=== PATIENT | male | born 1995 | race Caucasian/White ===

== ENCOUNTER 2018-03-27 12:00 | Emergency (ER) | payer SELFPAY ==
[~2018-03-27] VITALS: Ht 172.7 cm; Wt 68.0 kg
[~2018-03-27 12:00] MED LIST: DOXY100T PO; LORT5TAB PO; SULF-154 PO; Z.0.NO CURRENT MEDS
[2018-03-27 12:06] VITALS: BP 178/107; PULSE 87; RESP 18; TEMP 97.8; O2SAT 99
[2018-03-27] MEDS ORDERED: DEXAMETHASONE SOD PHOS 4 MG/ML VIAL IV PUSH ONE (12:15)
[2018-03-27] MEDS ORDERED: SODIUM CHLOR 0.9% 1000 ML INJ 1,000 ML IV ONE (12:15)
--- NOTE | 2018-03-27 12:15 | PD ---
HPI Chief Complaint: GI Complaint Time Seen by Provider: 12:10 Travel History International Travel<30 days: No Contact w/Intl Traveler<30days: No Traveled to known affect area: No History of Present Illness HPI 22-year-old male with history of asthma, presents emergency department for evaluation of sore throat that began yesterday. He has had nausea, vomiting, diarrhea today. He denies any abdominal pain. States his only pain is in his throat, it is burning, painful. Exacerbated with swallowing. He is uncertain of fever or chills. Denies any changes in bladder habits. He has no other symptoms to report at this time. [facility] Past Medical History Asthma: Yes Social History Alcohol Use: No Tobacco Use: Yes (5-6 cigarettes/day) Substance Use: No Allergies-Medications (Allergen,Severity, Reaction): Coded Allergies: cefaclor (Verified Allergy, Mild, Rash, 03/27/18) Reported Meds & Prescriptions Reported Meds & Active Scripts Active Lortab 5/500 (Acetaminophen/Hydrocodone Bitart) 5 Mg/500 Mg Tab 1 Tab PO Q6HPRN FOR PAIN Septra Ds (Trimethoprim/Sulfamethoxazole) Tab 1 Tab PO BID Doxycycline Hyclate 100 Mg Tab 100 Mg PO BID Reported No Current Meds (Miscellaneous Medication) Misc Review of Systems Except as stated in HPI: all other systems reviewed are Neg Physical Exam Narrative GENERAL: Well-nourished, well-developed male patient in no acute distress SKIN: Focused skin assessment warm/dry. HEAD: Normocephalic. EYES: No scleral icterus. No injection or drainage. ENT: Mucosa pink and moist. Significant erythema, with no exudate. No uvular edema. No uvular, palatal, or tonsillar deviation. Airway patent. Nasal turbinates appear normal without nasal blood, purulent drainage or septal hematoma. NECK: Supple, trachea midline. Cervical lymphadenopathy. CARDIOVASCULAR: Regular rate and rhythm without murmurs, gallops, or rubs. RESPIRATORY: Breath sounds equal bilaterally. No accessory muscle use. GASTROINTESTINAL: Abdomen soft, non-tender, nondistended. No guarding. No rebound tenderness. MUSCULOSKELETAL: No cyanosis, or edema. BACK: Nontender without obvious deformity. No CVA tenderness. Data Data Last Documented VS Vital Signs Date Time Temp Pulse Resp B/P (MAP) Pulse Ox O2 Delivery O2 Flow Rate FiO2 03/27/18 12:06 97.8 87 18 178/107 (130) 99 Orders Orders Iv Access Insert/Monitor (03/27/18 12:13) Complete Blood Count With Diff (03/27/18 12:13) Basic Metabolic Panel (Bmp) (03/27/18 12:13) Group A Rapid Strep Screen (03/27/18 12:13) Sodium Chlor 0.9% 1000 Ml Inj (Ns 1000 M (03/27/18 12:15) Dexamethasone Inj (Decadron Inj) (03/27/18 12:15) Strep Culture (Group A) (03/27/18 12:25) Labs Laboratory Tests Test 03/27/18 12:25 White Blood Count 15.9 TH/MM3 Red Blood Count 4.99 MIL/MM3 Hemoglobin 15.7 GM/DL Hematocrit 45.1 % Mean Corpuscular Volume 90.3 FL Mean Corpuscular Hemoglobin 31.4 PG Mean Corpuscular Hemoglobin Concent 34.8 % Red Cell Distribution Width 13.0 % Platelet Count 272 TH/MM3 Mean Platelet Volume 8.7 FL Neutrophils (%) (Auto) 84.6 % Lymphocytes (%) (Auto) 7.5 % Monocytes (%) (Auto) 6.5 % Eosinophils (%) (Auto) 1.1 % Basophils (%) (Auto) 0.3 % Neutrophils # (Auto) 13.4 TH/MM3 Lymphocytes # (Auto) 1.2 TH/MM3 Monocytes # (Auto) 1.0 TH/MM3 Eosinophils # (Auto) 0.2 TH/MM3 Basophils # (Auto) 0.0 TH/MM3 CBC Comment DIFF FINAL Differential Comment Blood Urea Nitrogen 10 MG/DL Creatinine 0.81 MG/DL Random Glucose 87 MG/DL Calcium Level 9.4 MG/DL Sodium Level 139 MEQ/L Potassium Level 4.2 MEQ/L Chloride Level 105 MEQ/L Carbon Dioxide Level 24.3 MEQ/L Anion Gap 10 MEQ/L Estimat Glomerular Filtration Rate 118 ML/MIN [facility] Medical Decision Making Medical Screen Exam Complete: Yes Emergency Medical Condition: Yes Medical Record Reviewed: Yes Differential Diagnosis Pharyngitis viral versus bacterial versus gastritis versus gastroenteritis Narrative Course 22-year-old male presents emergency department for evaluation of sore throat developed yesterday with nausea, vomiting, diarrhea today. Patient appears without distress. His vital signs are stable. Pharynx is erythematous without exudate. Strep screen is negative. Patient does have moderate leukocytosis of 15.9, likely secondary to vomiting. He is given IV normal saline fluid, IV Decadron. He will be discharged home to follow-up with a primary care provider. He agrees to return immediately with acute worsening symptoms. Laboratory Tests Test 03/27/18 12:25 White Blood Count 15.9 TH/MM3 Red Blood Count 4.99 MIL/MM3 Hemoglobin 15.7 GM/DL Hematocrit 45.1 % Mean Corpuscular Volume 90.3 FL Mean Corpuscular Hemoglobin 31.4 PG Mean Corpuscular Hemoglobin Concent 34.8 % Red Cell Distribution Width 13.0 % Platelet Count 272 TH/MM3 Mean Platelet Volume 8.7 FL Neutrophils (%) (Auto) 84.6 % Lymphocytes (%) (Auto) 7.5 % Monocytes (%) (Auto) 6.5 % Eosinophils (%) (Auto) 1.1 % Basophils (%) (Auto) 0.3 % Neutrophils # (Auto) 13.4 TH/MM3 Lymphocytes # (Auto) 1.2 TH/MM3 Monocytes # (Auto) 1.0 TH/MM3 Eosinophils # (Auto) 0.2 TH/MM3 Basophils # (Auto) 0.0 TH/MM3 CBC Comment DIFF FINAL Differential Comment Blood Urea Nitrogen 10 MG/DL Creatinine 0.81 MG/DL Random Glucose 87 MG/DL Calcium Level 9.4 MG/DL Sodium Level 139 MEQ/L Potassium Level 4.2 MEQ/L Chloride Level 105 MEQ/L Carbon Dioxide Level 24.3 MEQ/L Anion Gap 10 MEQ/L Estimat Glomerular Filtration Rate 118 ML/MIN Diagnosis Primary Impression: Gastroenteritis Additional Impression: Pharyngitis Qualified Codes: J02.9 - Acute pharyngitis, unspecified Referrals: Primary Care Physician Patient Instructions: Gastroenteritis (ED), General Instructions, Pharyngitis ( ED) Departure Forms: Tests/Procedures, Work Release Enter return to work date: Mar 30, 2018 Additional Instructions: Tylenol or ibuprofen as directed on the package as needed for fever and/or pain Warm salt water gargles may help to alleviate symptoms Avoid abrasive and acidic foods Return immediately to the emergency department with acute worsening symptoms Med/Other Pt SpecificInfo: No Change to Meds Disposition: 01 DISCHARGE HOME Condition: Stable Joan Kebede Mar 27, 2018 12:15
[2018-03-27 12:38] LABS: AUTOMATED NEUTROPHIL # 13.4 TH/MM3 (1.8-7.7); BASOPHIL % 0.3 % (0.0-2.0); EOSINOPHIL # 0.2 TH/MM3 (0-0.4); EOSINOPHIL % 1.1 % (0.0-4.0); HEMATOCRIT 45.1 % (39.0-51.0); HEMOGLOBIN 15.7 GM/DL (13.0-17.0); LYMPH % 7.5 % (9.0-44.0); LYMPHOCYTE # 1.2 TH/MM3 (1.0-4.8); MEAN CELL VOLUME 90.3 FL (80.0-100.0); MEAN CORPUSCULAR HEMOGLOBIN 31.4 PG (27.0-34.0); MEAN CORPUSCULAR HGB CONC 34.8 % (32.0-36.0); MEAN PLATELET VOLUME 8.7 FL (7.0-11.0); MONO % 6.5 % (0.0-8.0); NEUT % 84.6 % (16.0-70.0); PLATELET COUNT 272 TH/MM3 (150-450); RED BLOOD COUNT 4.99 MIL/MM3 (4.50-5.90); WHITE BLOOD COUNT 15.9 TH/MM3 (4.0-11.0)
[2018-03-27 13:02] LABS: BICARBONATE 24.3 MEQ/L (21.0-32.0); CALCIUM 9.4 MG/DL (8.5-10.1); CREATININE 0.81 MG/DL (0.60-1.30)
[2018-03-27 14:09] VITALS: BP 128/86
== END 2018-03-27 14:32 | disposition home or self-care (01) ==
LOC: NEPC 12:00
DX: K52.9 Noninfective gastroenteritis and colitis, unspecified (principal); J02.9 Acute pharyngitis, unspecified; J45.909 Unspecified asthma, uncomplicated; F17.210 Nicotine dependence, cigarettes, uncomplicated
CPT/HCPCS: 80048; 85025; 87081; 87880; 96361; 96374; 99284; J1100; J7030